=== PATIENT | female | born 1995 | race Caucasian/White ===

== ENCOUNTER 2018-05-25 19:32 | Emergency (ER) | END 2018-05-25 21:28 | disposition home or self-care (01) ==

== ENCOUNTER 2018-05-31 17:55 | Emergency (ER) | END 2018-05-31 22:11 | disposition home or self-care (01) ==

== ENCOUNTER 2018-06-10 22:58 | Emergency (ER) | END 2018-06-11 04:09 | disposition home or self-care (01) ==

== ENCOUNTER 2018-06-21 13:54 | Emergency (ER) | END 2018-06-21 16:50 | disposition home or self-care (01) ==

== ENCOUNTER 2018-07-03 19:24 | Emergency (ER) | END 2018-07-03 21:49 | disposition home or self-care (01) ==

== ENCOUNTER 2018-08-22 20:03 | Outpatient (CLI) | payer OTHER ==
[~2018-08-22] VITALS: Ht 157.5 cm; Wt 80.8 kg
[~2018-08-22 20:03] MED LIST: ACET500C5 PO; CEPH-443 PO; DENIES; FAMO-96 PO; METO10TA92 PO; ONDA4TAB14 PO
[2018-08-22 20:34] VITALS: BP 110/64; PULSE 112; RESP 18
[2018-08-22] MEDS ORDERED: FOLI0.4T2 PO (20:39)
[2018-08-22] MEDS ORDERED: PREN-19 PO (20:39)
[2018-08-22] MEDS ORDERED: FERR134T PO (20:39)
--- NOTE | 2018-08-23 06:08 | TRIAGE ---
OB Triage Datetime Report Generated by CPN: 08/23/2018 06:07 Datetime: 08/22/2018 22:25 Monitor Mode: External US Datetime: 08/22/2018 22:09 Labor Evaluation Monitor Mode: External Quality: Mild Pattern: Normal: <= 5 Contractions in 10 Minutes Datetime: 08/22/2018 21:37 Labor Evaluation Monitor Mode: External Quality: Mild Pattern: Normal: <= 5 Contractions in 10 Minutes Resting Tone [place]: Relaxed Datetime: 08/22/2018 20:34 Stage of : OB Triage Labor Evaluation Monitor Mode: External Quality: Mild Pattern: Normal: <= 5 Contractions in 10 Minutes Resting Tone [place]: Relaxed Heart Rate FHR Baseline Rate: 130 FHR Baseline Changes: No Baseline Change Variability: Moderate 6-25 bpm Accelerations: 15X15 Datetime: 08/22/2018 20:30 Time of Arrival: 08/22/2018 19:55 EGA: 22.0 Arrived By: Wheelchair Arrived From: Home Chief Complaint: c/o back pain and lower abd cramping Movement: Present Contractions: Denies/Absent Rupture of Membranes: Denies Vaginal Bleeding: None Vaginal Discharge: Denies Recent Sexual Intercouse: Denies Abdominal Trauma: Not Applicable Patient Complaints: Cramping Additional Patient Complaints: Pt states she has hx anxiety from childhood trauma from father Time Provider Notified: 08/22/2018 20:35 Provider Notified: Dr Pringle Initial Plan: EFM,CBC,UA, URINE CULLTURE, DRUH SCREEN, CMP,CVL. Datetime: 08/22/2018 20:25 Maternal Assessment Level of Consciousness: Fully Conscious Headache: Denies Blurred Vision: Yes Nausea/Vomiting: Denies Facial Edema: None Labor Evaluation Monitor Mode: External Quality: Mild Pattern: Normal: <= 5 Contractions in 10 Minutes Resting Tone [place]: Relaxed Heart Rate FHR Baseline Rate: 135 Monitor Mode: External US
== END 2018-08-22 22:58 | disposition home or self-care (01) ==
LOC: OBT 20:03 → L-D 20:04 → OBT 22:58
PROVIDERS: ATTEND Obstetrics & Gynecology
DX: O23.12 Infections of bladder in pregnancy, second trimester (principal); N30.00 Acute cystitis without hematuria; Z3A.22 22 weeks gestation of pregnancy
CPT/HCPCS: 76815; 80053; 80307; 81001; 85025; 87086; Z7500; G0463

== ENCOUNTER 2018-08-31 05:21 | Outpatient (CLI) | END 2018-08-31 08:00 | disposition home or self-care (01) ==

== ENCOUNTER 2018-10-04 20:01 | Outpatient (CLI) | payer OTHER ==
[~2018-10-04] VITALS: Ht 157.5 cm; Wt 85.4 kg
[~2018-10-04 20:01] MED LIST changes: -ACET500C5 PO; -CEPH-443 PO; -DENIES; -FAMO-96 PO; +FERR134T PO; +FOLI0.4T2 PO; -METO10TA92 PO; -ONDA4TAB14 PO; +PREN-19 PO
[2018-10-04 20:46] VITALS: BP 117/58; PULSE 100; RESP 16
--- NOTE | 2018-10-04 21:44 | PN ---
Triage Information Date/Time Reason for visit: Weeks of Gestation 28 weeks /Para Objective Vital Signs Date Temp Pulse Resp B/P (MAP) Pulse Ox O2 O2 Flow FiO2 Time Delivery Rate 10/04/18 98.1 100 16 117/58 Room Air 20:46 (77) Heart Rate Comments reactive Exam Tocometer with UCs --> irritability after po hydration Results/Medications Results 24 hrs Laboratory Tests Test 10/04/18 20:10 Urine Color YELLOW Urine Clarity SLIGHTLY CLOUDY A Urine pH 5.0 Urine Specific [place] 1.023 Urine Ketones NEGATIVE Urine Nitrite NEGATIVE Urine Bilirubin NEGATIVE Urine Urobilinogen 1+ H Urine Leukocyte Esterase TRACE A Urine Microscopic RBC 2 Urine Microscopic WBC 8 H Urine Squamous Epithelial Cells FEW Urine Mucus FEW A Urine Hemoglobin 1+ H Urine Glucose NEGATIVE Urine Total Protein NEGATIVE Medications Current Medications Polyethylene Glycol (Miralax) 17 gm ONCE ONCE PO ; Start 10/04/18 at 22:00; Stop 10/04/18 at 22:01; Status UNV Imaging Results BPP 8/8, BRIAN 17, CL 5.1cm Disposition: Discharge Assessment/Plan 23 y/o at 28 weeks s/p fall at 9:15a, no e/o abruption -discharge home, precautions given -f/u with OB TANIA SOMMERS Oct 04, 2018 21:44
[2018-10-04] MEDS ORDERED: DOCU250C17 PO (21:53)
[2018-10-04] MEDS ORDERED: POLYETHYLENE GLYCOL 17 GM PACKET PO ONE (22:00)
== END 2018-10-04 22:17 | disposition home or self-care (01) ==
LOC: OBT 20:01 → L-D 20:02 → OBT 22:17
PROVIDERS: ATTEND Specialist
DX: O9A.213 Injury, poisoning and certain other consequences of external causes complicating pregnancy, third trimester (principal); Z3A.28 28 weeks gestation of pregnancy
CPT/HCPCS: 76817; 76818; 81001; Z7500; Z7610; G0463

== ENCOUNTER 2018-10-25 16:46 | Outpatient (CLI) | payer OTHER ==
[~2018-10-25] VITALS: Ht 157.5 cm; Wt 85.0 kg
[~2018-10-25 16:46] MED LIST changes: +DOCU250C17 PO; -FERR134T PO; -FOLI0.4T2 PO
[2018-10-25 17:02] VITALS: BP 107/59; PULSE 100; RESP 18; Ht 157.5 cm; Wt 85.0 kg
[2018-10-25] MEDS ORDERED: NA PHOSPHATE/BIPHOS 133 ML ENEMA PR ONE (17:30)
--- NOTE | 2018-10-25 22:13 | TRIAGE ---
OB Triage Datetime Report Generated by CPN: 10/25/2018 22:12 Datetime: 10/25/2018 22:00 Stage of : OB Triage Datetime: 10/25/2018 21:00 Contraction Comments: PATIENT REPORTS HAVING DECREASE IN 'CRAMPING' SINCE HAVING LOOSE STOOL Heart Rate FHR Baseline Rate: 150 FHR Baseline Changes: No Baseline Change Variability: Moderate 6-25 bpm Datetime: 10/25/2018 20:00 Labor Evaluation Frequency: 2-4 Monitor Mode: External Pattern: Normal: <= 5 Contractions in 10 Minutes Contraction Comments: PATIENT REPORTS FEELING 'CRAMPING' FOR BM Heart Rate FHR Baseline Rate: 150 FHR Baseline Changes: No Baseline Change Datetime: 10/25/2018 18:01 Labor Evaluation Frequency: 6-10 Monitor Mode: External Duration (sec)2399: 50-70 Pattern: Normal: <= 5 Contractions in 10 Minutes Resting Tone [place]: Relaxed Heart Rate FHR Baseline Rate: 145 Monitor Mode: External US Variability: Moderate 6-25 bpm Accelerations: 10X10 Decelerations: None Category: Category I Pain Assessment Pain Scale: 7 Pain Presence: Intermittent Pain Type: Cramping Pain Location: Abdomen Pain Goal: 3 Pain Relief Measures: Comfort Measures Datetime: 10/25/2018 17:01 Stage of : OB Triage Datetime: 10/25/2018 16:56 Stage of : OB Triage Assessment Type: Triage Maternal Assessment Level of Consciousness: Fully Conscious DTR's/Clonus: DTRs 2+; No Clonus Headache: Denies Blurred Vision: No Respiratory Effort: Unlabored; Regular Rhythm; Equal Expansion Breath Sounds, Left: Clear and Equal Breath Sounds, Right: Clear and Equal Nausea/Vomiting: Denies RUQ Epigastric Pain: Denies Facial Edema: None Temperature Route: Axillary Fall Risk Assessment History of Falling: (0) No Secondary Diagnosis: (0) No Ambulatory Aid: (0) Bedrest/Nurse Assist IV Therapy: (0) No Gait: (0) Normal/Bedrest/Immobile Mental Status: (0) Oriented to Own Ability Fall Score: 0 Fall Risk Score Definition: No Risk: No action required Labor Evaluation Frequency: X1 Monitor Mode: External Duration (sec)2399: 40 Quality: Mild Pattern: Normal: <= 5 Contractions in 10 Minutes Resting Tone [place]: Relaxed Heart Rate FHR Baseline Rate: 155 Monitor Mode: External US Decelerations: None Pain Assessment Pain Scale: 8 Pain Presence: Intermittent Pain Type: Cramping Pain Location: Abdomen Pain Goal: 3 Pain Relief Measures: Comfort Measures Datetime: 10/25/2018 16:54 Time of Arrival: 10/25/2018 16:40 EGA: 31.1 Arrived By: Ambulatory Arrived From: Home Chief Complaint: C/O CONSTIPATION OVER 1.5 WEEKS EVEN AFTER TAKING STOOL SOFTENER. STATES STOOL SOF TENER MAKES HER FEEL UNCOMFORTABLE. DENIES BLEEDING, LEAKING OR UC'S Movement: Present Contractions: Denies/Absent Rupture of Membranes: Denies Vaginal Bleeding: None Vaginal Discharge: Denies Recent Sexual Intercouse: Denies Abdominal Trauma: Not Applicable Patient Complaints: Cramping Initial Plan: MONITOR, ENEMA, CL, BPP Datetime: 10/04/2018 22:01 Stage of : OB Triage Datetime: 10/04/2018 21:36 Stage of : OB Triage Labor Evaluation Frequency: 0 Quality: Mild Pattern: Normal: <= 5 Contractions in 10 Minutes Resting Tone [place]: Relaxed Heart Rate FHR Baseline Rate: 130 Monitor Mode: External US FHR Baseline Changes: No Baseline Change Variability: Moderate 6-25 bpm Accelerations: 15X15 Decelerations: None Category: Category I Pain Assessment Pain Scale: 0 Pain Presence: None/Denies Pain Type: N/A Datetime: 10/04/2018 20:30 Time of Arrival: 10/04/2018 19:55 EGA: 28.1 Arrived By: Ambulatory Arrived From: Home Chief Complaint: c/o fall at 0915. "Tripped ove my own feet and fell to knees". Denies hitting abdomen or any pain Movement: Present Contractions: Denies/Absent Rupture of Membranes: Denies Vaginal Bleeding: None Vaginal Discharge: Denies Recent Sexual Intercouse: Denies Abdominal Trauma: Fall Patient Complaints: None Time Provider Notified: 10/04/2018 20:15 Provider Notified: Dr Solo Initial Plan: EFM,BPP,UA,CVL,PO HYDRATION Datetime: 10/04/2018 20:25 Stage of : OB Triage Labor Evaluation Frequency: 3-6 Monitor Mode: External Duration (sec)2399: 20-30 Quality: Mild Pattern: Normal: <= 5 Contractions in 10 Minutes Resting Tone [place]: Relaxed Contraction Comments: Pt denies cramping or discomfort Heart Rate FHR Baseline Rate: 140 Monitor Mode: External US FHR Baseline Changes: No Baseline Change Variability: Moderate 6-25 bpm Accelerations: 15X15 Decelerations: None Category: Category I Pain Assessment Pain Scale: 0 Pain Presence: None/Denies Pain Type: N/A Datetime: 10/04/2018 20:15 Stage of : OB Triage Datetime: 10/04/2018 20:12 Stage of : OB Triage Maternal Assessment Level of Consciousness: Fully Conscious Headache: Denies Blurred Vision: No Respiratory Effort: Unlabored Nausea/Vomiting: Denies RUQ Epigastric Pain: Denies Facial Edema: None Monitor Mode: External Resting Tone [place]: Relaxed Heart Rate FHR Baseline Rate: 150 Monitor Mode: External US Pain Assessment Pain Scale: 0 Pain Presence: None/Denies Pain Type: N/A Datetime: 08/31/2018 05:47 Fall Score: 0 Fall Risk Score Definition: No Risk: No action required Datetime: 08/31/2018 05:33 EGA: 23.2 Datetime: 08/22/2018 20:30 EGA: 22.0
--- NOTE | 2018-10-26 08:50 | PN ---
Triage Information Date/Time Reason for visit: Constipation for 10 days Weeks of Gestation 31-week and 1 day /Para G1 Diabetes: none Hypertention: none Objective Vital Signs Date Temp Pulse Resp B/P (MAP) Pulse Ox O2 O2 Flow FiO2 Time Delivery Rate 10/25/18 98.2 100 18 107/59 17:02 (75) Heart Rate: 130's Contractions: 6-10 Minutes Apart Disposition: Discharge Assessment/Plan 23 years old 1 with single intrauterine at 31 weeks and 1 day with a MICHOACANO of 12/26/2018 presented to triage with complaint of constipation for 10 days. She states good movement. She denies nausea, vomiting, shortness of breath, chest pain, headache, visual changes, vaginal bleeding or LOF. - FHR: No sign of metabolic acidosis- Category I - She has no uterine contractions - Fleet enema given, patient had bowel movement - Ultrasound performed normal BRIAN - Symptoms and sign of labor, preeclampsia, kick count discussed with patient, she voiced understanding. All of her questions answered. - Patient was discharged home in stable condition with the appropriate discharge instructions provided. I would like patient to have close follow-up with her primary physician or outpatient clinic in 1 week or return to triage for worsening symptoms or any other urgent concerns. CHRISTIANNE PILLAI Oct 26, 2018 08:50
== END 2018-10-25 22:00 | disposition home or self-care (01) ==
LOC: OBT 16:46 → L-D 16:52 → OBT 22:00
PROVIDERS: ATTEND Specialist
DX: O26.893 Other specified pregnancy related conditions, third trimester (principal); Z3A.31 31 weeks gestation of pregnancy; K59.00 Constipation, unspecified
CPT/HCPCS: 76818; Z7500; Z7610; G0463

== ENCOUNTER 2018-11-14 21:21 | Outpatient (CLI) | payer OTHER ==
[~2018-11-14] VITALS: Ht 157.5 cm; Wt 86.0 kg
[2018-11-14 21:37] VITALS: BP 130/64; PULSE 101; RESP 20; Ht 157.5 cm; Wt 86.0 kg
[2018-11-14] MEDS ORDERED: LACTATED RINGER'S 1,000 ML IV ONE (22:00)
[2018-11-14] MEDS ORDERED: TERBUTALINE 1 ML ONE (22:35)
[2018-11-14] MEDS ORDERED: TERBUTALINE 1 MG/ML INJ SC ONE (23:00)
[2018-11-14] MEDS ORDERED: LACTATED RINGER'S 1,000 ML IV SCH (23:00)
[2018-11-15] MEDS ORDERED: SOD CHLORIDE 0.9% 1,000 ML IV PRN (00:30)
[2018-11-15] MEDS ORDERED: TERBUTALINE 1 MG/ML INJ SC ONE (00:30)
[2018-11-15] MEDS ORDERED: CEFTRIAXONE 1 GM INJ IM ONE (00:30)
[2018-11-15] MEDS ORDERED: CEFTRIAXONE 1 GM/50 ML (PMX) 50 ML IVPB ONE (00:30)
--- NOTE | 2018-11-15 02:38 | TRIAGE ---
OB Triage Datetime Report Generated by CPN: 11/15/2018 02:38 Datetime: 11/15/2018 02:20 Stage of : OB Triage Datetime: 11/15/2018 02:00 Stage of : OB Triage Temperature Route: Oral Labor Evaluation Frequency: 1-6 Monitor Mode: External Duration (sec)2399: 50-70 Pattern: Normal: <= 5 Contractions in 10 Minutes Resting Tone [place]: Relaxed Heart Rate FHR Baseline Rate: 150 Monitor Mode: External [place] Variability: Moderate 6-25 bpm Accelerations: 15X15 Decelerations: None Category: Category I Datetime: 11/15/2018 01:00 Stage of : OB Triage Labor Evaluation Frequency: 2-7 Monitor Mode: External Duration (sec)2399: 50-70 Pattern: Normal: <= 5 Contractions in 10 Minutes Resting Tone [place]: Relaxed Heart Rate FHR Baseline Rate: 145 Monitor Mode: External US Variability: Moderate 6-25 bpm Accelerations: 15X15 Decelerations: None Category: Category I Datetime: 11/15/2018 00:15 Stage of : OB Triage Datetime: 11/15/2018 00:00 Stage of : OB Triage Labor Evaluation Frequency: 2-6 Monitor Mode: External Duration (sec)2399: 50-70 Pattern: Normal: <= 5 Contractions in 10 Minutes Resting Tone [place]: Relaxed Heart Rate FHR Baseline Rate: 140 Monitor Mode: External US Variability: Moderate 6-25 bpm Accelerations: 15X15 Decelerations: None Category: Category I Datetime: 11/14/2018 23:18 Monitor Mode: External Monitor Mode: External US Datetime: 11/14/2018 23:00 Stage of : OB Triage Labor Evaluation Frequency: 2-7 Monitor Mode: External Duration (sec)2399: 50-70 Pattern: Normal: <= 5 Contractions in 10 Minutes Resting Tone [place]: Relaxed Heart Rate FHR Baseline Rate: 140 Monitor Mode: External US Variability: Moderate 6-25 bpm Accelerations: 15X15 Decelerations: None Category: Category I Datetime: 11/14/2018 21:57 Stage of : OB Triage Labor Evaluation Frequency: 2-3 Monitor Mode: External Duration (sec)2399: 50-70 Pattern: Normal: <= 5 Contractions in 10 Minutes Resting Tone [place]: Relaxed Heart Rate FHR Baseline Rate: 145 Monitor Mode: External [place] Variability: Moderate 6-25 bpm Accelerations: 15X15 Decelerations: None Category: Category I Datetime: 11/14/2018 21:45 Stage of : OB Triage Assessment Type: Triage Maternal Assessment Level of Consciousness: Fully Conscious DTR's/Clonus: DTRs 2+; No Clonus Headache: Denies Blurred Vision: No Respiratory Effort: Unlabored; Regular Rhythm; Equal Expansion Breath Sounds, Left: Clear and Equal Breath Sounds, Right: Clear and Equal Nausea/Vomiting: Denies RUQ Epigastric Pain: Denies Lower Extremities Edema: None Degree: None Upper Extremities Edema: None Degree: None Facial Edema: None Fall Risk Assessment History of Falling: (0) No Secondary Diagnosis: (0) No Ambulatory Aid: (0) Bedrest/Nurse Assist IV Therapy: (0) No Gait: (0) Normal/Bedrest/Immobile Mental Status: (0) Oriented to Own Ability Fall Score: 0 Fall Risk Score Definition: No Risk: No action required Datetime: 11/14/2018 21:29 Stage of : OB Triage Temperature Route: Oral Monitor Mode: External Monitor Mode: External US Datetime: 11/14/2018 21:15 Time of Arrival: 11/14/2018 21:15 EGA: 34.0 Arrived By: Ambulatory Arrived From: Home Chief Complaint: Stomach ache and diarrhea, N_V Movement: Present (Annotations: Data stored by CPN on behalf of user) Contractions: Regular Time Contractions Began: 11/14/2018 09:00 Contractions: 2-4 Rupture of Membranes: Denies Vaginal Bleeding: None Vaginal Discharge: Denies Recent Sexual Intercouse: Denies (Annotations: Data stored by N on behalf of user) Abdominal Trauma: Not Applicable Patient Complaints: Cramping; Nausea; Vomiting; Epigastric Pain; Other Time Provider Notified: 11/14/2018 22:08 Provider Notified: Dr. Pringle Initial Plan: EFM, BPP, CBC, CMP, PO _ IV Fluids, Terbutaline Datetime: 10/25/2018 16:56 Fall Score: 0 Fall Risk Score Definition: No Risk: No action required Datetime: 10/25/2018 16:54 EGA: 31.1 Datetime: 10/04/2018 20:30 EGA: 28.1 Datetime: 08/31/2018 05:47 Fall Score: 0 Fall Risk Score Definition: No Risk: No action required Datetime: 08/31/2018 05:33 EGA: 23.2 Datetime: 08/22/2018 20:30 EGA: 22.0
--- NOTE | 2018-11-15 07:04 | PN ---
Triage Information Date/Time 11/14/18 Reason for visit: Abd/pelvic pain Weeks of Gestation 34w /Para Diabetes: none Hypertention: none Objective Vital Signs Date Temp Pulse Resp B/P (MAP) Pulse Ox O2 O2 Flow FiO2 Time Delivery Rate 11/14/18 98.3 101 20 130/64 Room Air 21:37 (86) Intake and Output 11/14/18 11/14/18 11/15/18 1515:00 23:00 07:00 IntakeIntake Total 1150 ml BalanceBalance 1150 ml Heart Rate: 130's Contractions: < 5 Minutes Apart Exam CVA neg for tenderness Results/Medications Result Diagram: 11/14/18222411/14/182224 Results 24 hrs Laboratory Tests Test 11/14/18 21:30 11/14/18 22:25 Urine Color ANNA Urine Clarity CLOUDY A Urine pH 5.0 Urine Specific [place] 1.025 Urine Ketones 1+ H Urine Nitrite NEGATIVE Urine Bilirubin NEGATIVE Urine Urobilinogen 2+ H Urine Leukocyte Esterase 2+ H Urine Microscopic RBC 15 H Urine Microscopic WBC 23 H Urine Squamous Epithelial Cells FEW Urine Bacteria FEW A Urine Mucus MODERATE Urine Hemoglobin 1+ H Urine Glucose NEGATIVE Urine Total Protein 1+ H White Blood Count 9.9 Red Blood Count 3.98 L Hemoglobin 10.9 L Hematocrit 32.9 L Mean Corpuscular Volume 82.7 Mean Corpuscular Hemoglobin 27.4 L Mean Corpuscular Hemoglobin Concent 33.1 Red Cell Distribution Width 13.7 Platelet Count 261 Mean Platelet Volume 10.0 Immature Granulocytes % 0.600 H Neutrophils % 69.6 Lymphocytes % 21.9 Monocytes % 7.2 Eosinophils % 0.5 Basophils % 0.2 Nucleated Red Blood Cells % 0.0 Immature Granulocytes # 0.060 H Neutrophils # 6.9 Lymphocytes # 2.2 Monocytes # 0.7 Eosinophils # 0.1 Basophils # 0.0 Nucleated Red Blood Cells # 0.0 Sodium Level 138 Potassium Level 3.9 Chloride Level 107 Carbon Dioxide Level 21 Anion Gap 10 Blood Urea Nitrogen 5 L Creatinine 0.48 Est Glomerular Filtrat Rate mL/min > 60 Glucose Level 99 Calcium Level 9.3 Total Bilirubin 0.2 Direct Bilirubin 0.00 Indirect Bilirubin 0.2 Aspartate Amino Transf (AST/SGOT) 16 Alanine Aminotransferase (ALT/SGPT) 20 Alkaline Phosphatase 156 H Total Protein 6.6 Albumin 3.5 Globulin 3.10 Albumin/Globulin Ratio 1.12 Medications terbbutalinex2 IV hydration rocephin 1gm Imaging Results BPP 04/17 BRIAN 13 Disposition: Discharge Assessment/Plan A IUP 34w UTI PTL resolved P discharge home with Rx cephalexin f/u with her OB BRYAN MONCADA MD Nov 15, 2018 07:04
== END 2018-11-15 02:20 | disposition home or self-care (01) ==
LOC: OBT 21:21 → L-D 21:21 → OBT 11-15 02:20
PROVIDERS: ATTEND Specialist
DX: O26.893 Other specified pregnancy related conditions, third trimester (principal); Z3A.34 34 weeks gestation of pregnancy; R10.2 Pelvic and perineal pain
CPT/HCPCS: 36415; 76818; 80053; 81001; 85025; 87086; 96360; 96372; J0696; J3105; J7120; Z7500; 82947; G0463

== ENCOUNTER 2019-02-16 21:07 | Emergency (ER) | payer OTHER ==
[~2019-02-16] VITALS: Ht 157.5 cm; Wt 75.0 kg
[2019-02-16 21:11] VITALS: Ht 157.5 cm; Wt 75.0 kg
[2019-02-16] MEDS ORDERED: KETOROLAC 30 MG INJ IM STA (21:46)
[2019-02-16] MEDS ORDERED: IBUP-1542 PO (23:52)
[2019-02-16] MEDS ORDERED: ONDA4TAB14 PO (23:54)
[2019-02-16] MEDS ORDERED: FER325 PO (23:55)
[2019-02-16] MEDS ORDERED: DOCU-144 PO (23:55)
--- NOTE | 2019-02-17 00:01 | ERD ---
ER Documentation Chief Complaint Chief Complaint RUQ PAIN X 2 WEEKS & ACTIVE DIARRHEA X 2 TIMES TODAY, HX OF NIKI HPI Patient is a 23-year-old female who presents the ER for concerns of right upper quadrant pain x2 weeks. Patient states pain comes and goes. She states the pain occasionally radiates to her left upper quadrant. Patient denies any fevers or chills. Patient reports 2 episodes of vomiting earlier today. Patient states she is also had brown loose stools, nonbloody. Patient reports 2 episodes today. No recent travel. No recent antibiotic use. Patient denies any dysuria, feelings, urgency or hematuria. Patient is currently on her menstrual period. ROS All systems reviewed and are negative except as per history of present illness. Medications Home Meds Active Scripts Ferrous Sulfate* (Ferrous Sulfate*) 325 Mg Tabec, 325 MG PO BID, #30 TAB Prov:BRETT PEACOCK PA-C 02/16/19 Docusate Sodium* (Colace*) 100 Mg Capsule, 100 MG PO TID, #30 CAP Prov:BRETT PEACOCK PA-C 02/16/19 Ondansetron (Ondansetron Odt) 4 Mg Tab.rapdis, 4 MG PO Q6H PRN for NAUSEA AND/OR VOMITING, #10 TAB Prov:BRETT PEACOCK PA-C 02/16/19 Ibuprofen* (Motrin*) 600 Mg Tab, 600 MG PO Q6, #30 TAB Prov:BRETT PEACOCK PA-C 02/16/19 Reported Medications Docusate Sodium (COL-RITE) 250 Mg Capsule, 250 MG PO DAILY, CAP 10/04/18 Vit #76/Iron,Carb/FA (Prenatabs Rx Tablet) 1 Each Tablet, 1 EACH PO DAILY, TAB 08/22/18 Allergies Allergies: Coded Allergies: No Known Allergy (Unverified , 11/14/18) PMhx/Soc History of Surgery: No Anesthesia Reaction: No Hx Respiratory Disorders: No Hx Cardiac Disorders: No Hx Miscellaneous Medical Probl: No Hx Alcohol Use: No Hx Substance Use: No Hx Tobacco Use: No Smoking Status: Never smoker FmHx Family History: No diabetes Physical Exam Vitals Physical Exam GENERAL: Well-developed, well-nourished female. Appears in no acute distress. HEAD: Normocephalic, atraumatic. EYES: Pupils are equally reactive bilaterally. EOMs grossly intact. No conjunctival erythema. ENT: Moist mucous membranes. No uvula deviation. No kissing tonsils. NECK: Supple. No meningismus. Normal range of motion of the neck. LUNG: Clear to auscultation bilaterally. No rhonchi, wheezing, rales or coarse breath sounds. HEART: Regular rate and rhythm. No murmurs, rubs or gallops. ABDOMEN: Soft nondistended. Tender to palpation in the right upper quadrant. P ositive bowel sounds in all four quadrants. No rebound tenderness, no guarding. (-) McBurney's point tenderness. No CVA tenderness. BACK: No midline tenderness. EXTREMITIES: Equal pulses bilaterally. No peripheral clubbing, cyanosis or edema. No unilateral leg swelling. NEUROLOGIC: Alert and oriented. Moving all four extremities without any difficulty. Normal speech. Steady gait. SKIN: Normal color. Warm and dry. No rashes or lesions. Results 24 hrs Laboratory Tests Test 02/16/19 22:08 02/16/19 22:10 Urine Color YELLOW Urine Clarity SLIGHTLY CLOUDY Urine pH 5.0 Urine Specific [place] 1.025 Urine Ketones TRACE mg/dL Urine Nitrite NEGATIVE mg/dL Urine Bilirubin NEGATIVE mg/dL Urine Urobilinogen 2+ mg/dL Urine Leukocyte Esterase TRACE Carlie/ul Urine Microscopic RBC 95 /HPF Urine Microscopic WBC 8 /HPF Urine Squamous Epithelial Cells FEW /HPF Urine Bacteria FEW /HPF Urine Mucus MODERATE /HPF Urine Hemoglobin 3+ mg/dL Urine Glucose NEGATIVE mg/dL Urine Total Protein NEGATIVE mg/dl White Blood Count 10.0 10^3/ul Red Blood Count 4.43 10^6/ul Hemoglobin 10.3 g/dl Hematocrit 33.8 % Mean Corpuscular Volume 76.3 fl Mean Corpuscular Hemoglobin 23.3 pg Mean Corpuscular Hemoglobin Concent 30.5 g/dl Red Cell Distribution Width 15.4 % Platelet Count 438 10^3/UL Mean Platelet Volume 10.0 fl Immature Granulocytes % 0.200 % Neutrophils % 50.2 % Lymphocytes % 41.3 % Monocytes % 6.1 % Eosinophils % 1.7 % Basophils % 0.5 % Nucleated Red Blood Cells % 0.0 /100WBC Immature Granulocytes # 0.020 10^3/ul Neutrophils # 5.0 10^3/ul Lymphocytes # 4.2 10^3/ul Monocytes # 0.6 10^3/ul Eosinophils # 0.2 10^3/ul Basophils # 0.1 10^3/ul Nucleated Red Blood Cells # 0.0 10^3/ul Sodium Level 142 mmol/L Potassium Level 4.0 mmol/L Chloride Level 110 mmol/L Carbon Dioxide Level 22 mmol/L Anion Gap 10 Blood Urea Nitrogen 10 mg/dl Creatinine 0.71 mg/dl Est Glomerular Filtrat Rate mL/min > 60 mL/min Glucose Level 92 mg/dl Calcium Level 9.3 mg/dl Total Bilirubin 0.3 mg/dl Direct Bilirubin 0.00 mg/dl Indirect Bilirubin 0.3 mg/dl Aspartate Amino Transf (AST/SGOT) 27 IU/L Alanine Aminotransferase (ALT/SGPT) 40 IU/L Alkaline Phosphatase 87 IU/L Total Protein 7.0 g/dl Albumin 4.2 g/dl Globulin 2.80 g/dl Albumin/Globulin Ratio 1.50 Lipase 118 U/L POC Beta HCG, Qualitative NEGATIVE Current Medications Medications Dose Sig/Billie Start Time Status Last (Trade) Ordered Route PRN Stop Time Admin Dose Reason Admin Ketorolac 30 mg ONCE STAT 02/16/19 DC 02/16/19 Tromethamine IM 21:46 02/16/19 22:47 (Toradol) 21:48 Procedures/MDM ED COURSE: The patient was stable throughout ED course. I kept the patient and/or family informed of laboratory and diagnostic imaging results throughout the ED course. DIAGNOSTIC IMAGING: Read by radiologist. DIAGNOSTIC IMAGING REPORT Patient: MONICA THAPA : 1995 Age: 23 Sex: F MR #: [id number] [facility] #: [id number] DOS: 02/16/19 2146 Ordering MD: BRETT PEACOCK PA-C Location: E Room/Bed: PROCEDURE: Abdominal ultrasound, limited. CLINICAL INDICATION: Abdominal pain. TECHNIQUE: Multiple real-time images were acquired of the patient's right upper abdomen utilizing a high resolution transducer. COMPARISON: 06/11/2018. FINDINGS: The liver demonstrates normal echogenicity and size measuring 16.6 cm. There is no focal mass or intrahepatic biliary ductal dilatation. The portal vein is patent. The gallbladder is not distended. Multiple echogenic gallstones are identified. There is no pericholecystic fluid or gallbladder wall thickening. The common bile duct measures 3.6 mm in maximal dimension. The pancreas is obscured by overlying bowel gas. No free fluid is identified. The right kidney is normal size and echogenicity measuring 8.7 cm. There is no focal renal mass or echogenic calculus identified. There is no obstructive uropathy. IMPRESSION: Cholelithiasis without ultrasound evidence of cholecystitis. Pancreas obscured by overlying bowel gas. .Vikash Martinez MD, Date Time Electronically viewed and signed by .Vikash Martinez MD, MD on 02/17/2019 04:15 .T/ CC: BRETT PEACOCK PA-C [phone] PROCEDURES: None. MEDICATIONS GIVEN: Toradol IM Patient tolerated medication well with no adverse reactions. Patient reported improvement in pain. MEDICAL DECISION MAKING: This is a 23-year-old female presents to the ER for concerns of right upper quadrant pain for the last 2 weeks. Patient reports associated vomiting. Patient also has diarrhea. Vital signs were reviewed. Patient is afebrile. Blood work was obtained. CBC showed evidence of anemia. No indication for transfusion at this time. No evidence of systemic infection. CMP showed no evidence of electrolyte abnormalities, severe acidosis, alkalosis, renal failure, or liver disease. Lipase showed no evidence of acute pancreatitis. UA did show positive hemoglobin. Patient is currently on her menstrual.. Urine test was negative. Gallbladder ultrasound showed gallstones. Gallbladder wall within normal limits. Common bile duct within normal limits. At this time, the patient presentation was consistent with gallstones, biliary colic and anemia. Differential diagnosis include but was not limited acute coronary syndrome, AAA, mesenteric ischemia, lower lobe pneumonia, DKA, bowel perforation, cholecystitis, choledocholithiasis, ascending cholangitis, hepatic abscess, pancreatitis, PUD, gastritis, GERD, splenic rupture, diverticulitis, UTI, pyelonephritis, nephrolithiasis, appendicitis, constipation, , ectopic , PID, ovarian torsion or tubo-ovarian abscess. PRESCRIPTIONS: Ibuprofen, Zofran, Colace, iron supplements DISCHARGE: At this time, patient is stable for discharge and outpatient management. I have instructed the patient to follow-up with his/her primary care physician in 1-2 days. I have instructed the patient to promptly return to the ER at any time for any new or worsening symptoms including increased pain, nausea, vomiting, diarrhea, fever, weakness or LOC. The patient and/or family expressed understanding of and agreement with this plan. All questions were answered. Home care instructions were provided. Disclaimer: Inadvertent spelling and grammatical errors are likely due to EHR/dictation software use and do not reflect on the overall quality of patient care. Also, please note that the electronic time recorded on this note does not necessarily reflect the actual time of the patient encounter. Departure Diagnosis: Primary Impression: Gallstones Additional Impressions: Biliary colic Anemia Anemia type: unspecified type Qualified Codes: D64.9 - Anemia, unspecified Condition: Fair Patient Instructions: Biliary Colic With Gallstone (Confirmed) Additional Instructions: Follow up with general surgeon for cholecystectomy on outpatient basis. Call your primary care doctor TOMORROW for an appointment during the next 1-2 days.See the doctor sooner or return here if your condition worsens before your appointment time. BRETT PEACOCK PA-C Feb 17, 2019 00:01
[2019-02-17 00:19] VITALS: BP 127/83; PULSE 76; RESP 20
== END 2019-02-17 00:20 | disposition home or self-care (01) ==
LOC: FTE 21:07
DX: K80.50 Calculus of bile duct without cholangitis or cholecystitis without obstruction (principal); K80.20 Calculus of gallbladder without cholecystitis without obstruction; D64.9 Anemia, unspecified
CPT/HCPCS: 36415; 76705; 80053; 81001; 81025; 83690; 85025; 96372; J1885; Z7502

== ENCOUNTER 2019-03-17 09:58 | Emergency (ER) | payer OTHER ==
[~2019-03-17] VITALS: Ht 157.5 cm; Wt 71.2 kg
[~2019-03-17 09:58] MED LIST changes: +DOCU-144 PO; +FER325 PO; +IBUP-1542 PO; +ONDA4TAB14 PO
[2019-03-17 10:10] VITALS: Ht 157.5 cm; Wt 71.2 kg
[2019-03-17] MEDS ORDERED: MAGNESIUM CITRATE 300 ML BTL PO ONE (13:00)
[2019-03-17] MEDS ORDERED: DOCUSATE SODIUM 100 MG CAP PO ONE (13:00)
[2019-03-17] MEDS ORDERED: DOCU-144 PO (13:02)
--- NOTE | 2019-03-17 13:03 | ERD ---
ER Documentation Chief Complaint Chief Complaint epigastric pain & diarrhea x3 days HPI 23-year-old female presented to ED for abdominal pain and constipation. Patient states the discomfort is 8 out of 10. Patient denies any allergies to medications. Patient states she is not currently taking any medications. Valente ojyce this happened to her in 2012 that she had to be hospitalized for it. Patient's only past medical history is a section. Patient states that she did pass some stool this morning but it was more liquid. Patient denies any blood in her stool or urine. She has not taken any medications for this. ROS All systems reviewed and are negative except as per history of present illness. Medications Home Meds Active Scripts Docusate Sodium* (Colace*) 100 Mg Capsule, 100 MG PO TID, #30 CAP Prov:ALIX JOSEPH PA-C 03/17/19 Ferrous Sulfate* (Ferrous Sulfate*) 325 Mg Tabec, 325 MG PO BID, #30 TAB Prov:BERTT PEACOCK PA-C 02/16/19 Docusate Sodium* (Colace*) 100 Mg Capsule, 100 MG PO TID, #30 CAP Prov:BRETT PEACOCK PA-C 02/16/19 Ondansetron (Ondansetron Odt) 4 Mg Tab.rapdis, 4 MG PO Q6H PRN for NAUSEA AND/OR VOMITING, #10 TAB Prov:BRETT PEACOCK PA-C 02/16/19 Ibuprofen* (Motrin*) 600 Mg Tab, 600 MG PO Q6, #30 TAB Prov:BRETT PEACOCK PA-C 02/16/19 Reported Medications Docusate Sodium (COL-RITE) 250 Mg Capsule, 250 MG PO DAILY, CAP 10/04/18 Vit #76/Iron,Carb/FA (Prenatabs Rx Tablet) 1 Each Tablet, 1 EACH PO DAILY, TAB 08/22/18 Allergies Allergies: Coded Allergies: No Known Allergy (Unverified , 03/17/19) PMhx/Soc History of Surgery: No Anesthesia Reaction: No Hx Respiratory Disorders: No Hx Cardiac Disorders: No Hx Miscellaneous Medical Probl: Yes (chronic constipation) Hx Alcohol Use: No Hx Substance Use: No Hx Tobacco Use: No Smoking Status: Never smoker FmHx Family History: No diabetes, No coronary disease, No other Physical Exam Vitals Vital Signs Date Temp Pulse Resp B/P (MAP) Pulse Ox O2 O2 Flow FiO2 Time Delivery Rate 03/17/19 97.2 82 18 125/62 98 Room Air 13:36 (83) 03/17/19 97.2 88 18 119/53 98 10:10 (75) Physical Exam Const: No acute distress Resp: Clear to auscultation bilaterally Cardio: Regular rate and rhythm, no murmurs Abd: Distended left upper quadrant, no pain on palpation, no right lower quadrant tenderness, no right upper quadrant tenderness. Skin: No petechiae or rashes Back: No midline or flank tenderness Ext: No cyanosis, or edema Results 24 hrs Laboratory Tests Test 03/17/19 11:08 POC Beta HCG, Qualitative NEGATIVE Current Medications Medications Dose Sig/Billie Start Time Status Last (Trade) Ordered Route PRN Stop Time Admin Dose Reason Admin Magnesium 300 ml ONCE ONCE 03/17/19 DC 03/17/19 Citrate PO 13:00 03/17/19 13:33 (Citroma) 13:01 Docusate 100 mg ONCE ONCE 03/17/19 DC 03/17/19 Sodium PO 13:00 03/17/19 13:33 (Colace) 13:01 Procedures/MDM Diagnostic imaging: Read by radiologist HOLLAND: CT ABDOMEN AND PELVIS WITHOUT CONTRAST. CLINICAL INDICATION: Abdominal pain TECHNIQUE: CT scan of the abdomen and pelvis without contrast was performed on a multidetector high-resolution CT scanner. The patient was scanned without intravenous contrast. Coronal and sagittal reformatted images were obtained from the axial source images. Images were reviewed on a high-resolution PACS workstation. The total exam CTDI equals 13.6 mGy and the total exam DLP equals 809.4 mGy-cm. One or more of the following dose reduction techniques were used: Automated exposure control. Adjustment of the mA and/or kV according to patient size. Use of iterative reconstruction technique. DICOM images are available COMPARISON: None FINDINGS: CT abdomen: The lung bases are clear. The heart size is within normal limits. There is no significant pericardial effusion. Hepatic morphology is within normal limits. No gross contour deforming masses. The gallbladder is within normal limits. No evidence of intrahepatic or extrahepatic biliary dilatation. The spleen and pancreas are within normal limits. Both adrenal glands are within normal limits. Both kidneys are in normal anatomic position. Several punctate nonobstructing stones are noted within right kidney. The largest measures up to 2.1 mm. No evidence of ureteric calculi. Punctate 2.5 mm non-obstructing stones noted within left kidney. No ureteric calculi bilaterally. No obstructive uropathy. The visualized GI tract demonstrates large amount of stool within a distended rectosigmoid colon. Moderate amount of stool noted throughout remaining large bowel loops. No gross evidence of bowel obstruction. Normal caliber loops of small bowel. Stomach is collapsed. The unenhanced aorta is unremarkable. No significant retroperitoneal lymphadenopathy. CT pelvis: The bladder is collapsed. No significant free fluid. No pelvic lymphadenopathy. There is mass effect with anterior displacement of the bladder and uterus, secondary to a markedly distended rectosigmoid colon. The visualized osseous structures, appears to be within normal limits. IMPRESSION: 1. MARKEDLY DISTENDED RECTOSIGMOID COLON, CONTAINING A LARGE AMOUNT OF STOOL, CONSISTENT WITH FECAL IMPACTION. RECOMMEND DISIMPACTION. THERE IS MASS EFFECT WITH ANTERIOR DISPLACEMENT OF THE BLADDER AND UTERUS. 2. MODERATE AMOUNT OF STOOL AND LARGE AMOUNT OF STOOL WITHIN THE RECTOSIGMOID COLON, CONSISTENT WITH CONSTIPATION. NO GROSS EVIDENCE OF BOWEL OBSTRUCTION. 3. Bilateral nonobstructing nephrolithiasis. No evidence of obstructive uropathy. 4. No evidence of free fluid or free air. No gross focal fluid collections. RPTAT: AAPP Physician Giana Medications given in ER: Magnesium citrate Colace Patient tolerated medication well with no adverse reactions. Patient reported improvement in pain. Medical decision making: Patient is a 23-year-old female presented to ED for abdominal pain and constipation x3 days. Patient states she has been able to pass a little bit of stool but is been more like diarrhea. Patient states that there was no presence of blood in the stool. Patient denies any difficulty urinating or any pain on urination. Patient is presenting afebrile physical exam noted abdominal distention with no pain to palpation. Patient's right lower quadrant was unremarkable, right upper quadrant was unremarkable. Patient has decreased bowel sounds on auscultation. Patient's urine was negative. Patient's CT scan showed fecal impaction with no obstruction. Patient was given magnesium citrate and Colace in the ED. The patient's vitals remained stable within the ED she is afebrile she is only in mild pain. At this time I have low suspicion for bowel obstruction, sepsis, diverticulitis, appendicitis, ectopic , , sepsis, dehydration, hernia, toxic megacolon syndrome. Patient was advised that she can wait around until she passes stool. She prefers to go home I advised the patient if symptoms worsen she needs to return to ER immediately otherwise she should follow-up with her primary care provider within 1 to 2 days. Patient was given a prescription for Colace and advised to increase fiber intake and use [id number] Metamucil. Patient had no further questions and is in agreement to the treatment plan. Prescription for home: Colace I have discussed with the patient proper use and common side effects to expert with the medication . I advised the patient/family to speak with the pharmaci st dispensing the medication to be advised of any potential drug interactions with other medication or supplements they may be taking. Discharge: At this time, patient is stable for discharge and outpatient management. I have instructed the patient to follow-up with his\her primary care physician in 1 to 2 days. I have discussed with the patient the possibility of needing to see a specialist for further work-up and imaging studies if symptoms persist. I have instructed the patient to promptly return to the ER for any new or worsening symptoms including increased pain, fever, nausea, vomiting, weakness or LOC. The patient and\or family expressed understanding of and agreement with this plan. All questions were answered. Home care instructions were provided. Disclaimer: Inadvertent spelling and grammatical errors are likely due to EHR\dictation software use and do not reflect on the overall quality of patient care. Also, please note that the electronic time recorded on the note does not necessarily reflect the actual time of the patient encounter. Departure Diagnosis: Primary Impression: Constipation Constipation type: unspecified constipation type Qualified Codes: K59.00 - Constipation, unspecified Additional Impression: Fecal impaction Condition: Stable Patient Instructions: Constipation (Adult) Additional Instructions: Call your primary care doctor TOMORROW for an appointment during the next 1-2 days.See the doctor sooner or return here if your condition worsens before your appointment time. ALIX JOSEPH PA-C Mar 17, 2019 13:03
[2019-03-17 13:36] VITALS: BP 125/62; PULSE 82; RESP 18
== END 2019-03-17 13:39 | disposition home or self-care (01) ==
LOC: FTE 09:58
DX: K56.41 Fecal impaction (principal)
CPT/HCPCS: 74176; 81025; Z7502; Z7610

== ENCOUNTER 2019-03-19 20:20 | Emergency (ER) | payer OTHER ==
[~2019-03-19] VITALS: Ht 154.9 cm; Wt 70.9 kg
[2019-03-19 20:41] VITALS: Ht 154.9 cm; Wt 70.9 kg
[2019-03-19] MEDS ORDERED: MAGNESIUM CITRATE 300 ML BTL PO ONE (22:00)
--- NOTE | 2019-03-19 22:06 | ERD ---
ER Documentation Chief Complaint Chief Complaint L flank pain, worse today HPI 23-year-old female G1, P1 with past medical history of chronic constipation since childhood who presents with complaint of left flank pain and diarrhea. Patient states she was here this past Sunday in ED for similar complaints. CT demonstrating copious stool in colon. Patient given mag citrate and discharged with Colace medication. Since that time been having small amount of diarrhea daily but with worsening abdominal distention and left flank discomfort. States she tried [id number] colon cleanse which did not help with symptoms. She otherwise denies persistent nausea, vomiting, urinary symptoms, vaginal bleeding or discharge. ROS All systems reviewed and are negative except as per history of present illness. Medications Home Meds Active Scripts Lactulose* (Lactulose*) 20 Gm/30 Ml Solution, 20 GM PO BID for 2 Days, ML Prov:TONY TERRY PA-C 03/20/19 Mineral Oil* (Fleet* Mineral Oil Enema) 133 Ml Oil, 133 ML NM NEEDED PRN for CONSTIPATION for 7 Days, ENEMA Prov:TONY TERRY PA-C 03/20/19 Polyethylene Glycol* (Miralax*) 17 Gm Powd.pack, 17 GM PO DAILY, #7 Prov:TONY TERRY PA-C 03/20/19 Docusate Sodium* (Colace*) 100 Mg Capsule, 100 MG PO TID, #30 CAP Prov:ALIX JOSEPH PA-C 03/17/19 Ferrous Sulfate* (Ferrous Sulfate*) 325 Mg Tabec, 325 MG PO BID, #30 TAB Prov:BRETT PEACOCK PA-C 02/16/19 Docusate Sodium* (Colace*) 100 Mg Capsule, 100 MG PO TID, #30 CAP Prov:BRETT PEACOCK PA-C 02/16/19 Ondansetron (Ondansetron Odt) 4 Mg Tab.rapdis, 4 MG PO Q6H PRN for NAUSEA AND/OR VOMITING, #10 TAB Prov:BRETT PEACOCK PA-C 02/16/19 Ibuprofen* (Motrin*) 600 Mg Tab, 600 MG PO Q6, #30 TAB Prov:BRETT PEACOCK PA-C 02/16/19 Reported Medications Docusate Sodium (COL-RITE) 250 Mg Capsule, 250 MG PO DAILY, CAP 10/04/18 Vit #76/Iron,Carb/FA (Prenatabs Rx Tablet) 1 Each Tablet, 1 EACH PO DAILY, TAB 08/22/18 Allergies Allergies: Coded Allergies: No Known Allergy (Unverified , 03/17/19) PMhx/Soc History of Surgery: Yes (CS x1) Anesthesia Reaction: No Hx Neurological Disorder: No Hx Respiratory Disorders: No Hx Cardiac Disorders: No Hx Psychiatric Problems: No Hx Miscellaneous Medical Probl: No Hx Alcohol Use: Yes (occasionally.) Hx Substance Use: No Hx Tobacco Use: No Smoking Status: Never smoker FmHx Family History: No diabetes, No coronary disease, No other Physical Exam Vitals Vital Signs Date Temp Pulse Resp B/P (MAP) Pulse Ox O2 O2 Flow FiO2 Time Delivery Rate 03/20/19 98.4 91 18 112/66 99 Room Air 03:51 (81) 03/19/19 98.8 89 18 125/69 97 20:41 (87) Physical Exam Const: No acute distress Head: Atraumatic Eyes: Normal Conjunctiva ENT: Normal External Ears, Nose and Mouth. Neck: Full range of motion. No meningismus. Resp: Clear to auscultation bilaterally Cardio: Regular rate and rhythm, no murmurs Abd: Distended, tenderness to palpation to right upper quadrant, no rebound or guarding, no bowel sounds auscultated Skin: No petechiae or rashes Back: No midline or flank tenderness Ext: No cyanosis, or edema Neur: Awake and alert Psych: Normal Mood and Affect Results 24 hrs Laboratory Tests Test 03/20/19 00:16 POC Beta HCG, Qualitative NEGATIVE Current Medications Medications Dose Sig/Billie Start Time Status Last (Trade) Ordered Route PRN Stop Time Admin Dose Reason Admin Magnesium 300 ml ONCE ONCE 03/19/19 DC 03/19/19 Citrate PO 22:00 22:08 (Citroma) 03/19/19 22:01 Sodium 133 ml ONCE ONCE 03/20/19 DC 03/20/19 Biphosphate/ NM 02:00 01:51 Sodium 03/20/19 02:01 Phosphate (Fleet Enema) Procedures/MDM 23-year-old female with history of chronic constipation with recent CT for copio us stool in colon who presents with complaint of left flank pain diarrhea. Given diarrhea with symptoms and signs consistent with constipation the concern is for partial bowel obstruction. ED course: Patient given mag citrate, subsequently with a small amount of stool output, and serial examination belly a bit softer than on presentation less distended, but x-ray as noted with copious amount of stool in rectosigmoid and she would likely need to have much larger bowel output to relieve symptoms and noted c onstipation, obstipation Fleet enema given in ED with good effect Discharged with lactulose, MiraLAX, strict return precautions to return to emergency room in 24 hours if no bowel movements Case discussed with attending of record Dr. Powell DISPOSITION PLAN: We discussed follow up with the patient's primary care doctor within 24 to 48 hours. Patient counseled regarding my diagnostic impression and care plan. Prior to discharge all questions answered. Pt agrees with treatment plan and understands strict return precautions. Precautionary instructions provided including instructions to return to the ER if not improving or for any worsening or changing symptoms or concerns. Disclaimer: Inadvertent spelling and grammatical errors are likely due to EHR/dictation software use and do not reflect on the overall quality of patient care. Also, please note that the electronic time recorded on this note does not necessarily reflect the actual time of the patient encounter. Departure Diagnosis: Primary Impression: Abdominal pain Condition: Stable TONY TERRY PA-C Mar 19, 2019 22:06
[2019-03-20] MEDS ORDERED: POLY17PO6 PO (00:22)
[2019-03-20] MEDS ORDERED: PEG1POWD PO (00:22)
[2019-03-20] MEDS ORDERED: MINE133E23 PR (00:23)
[2019-03-20] MEDS ORDERED: LACT20SO2 PO (01:51)
[2019-03-20] MEDS ORDERED: NA PHOSPHATE/BIPHOS 133 ML ENEMA PR ONE (02:00)
[2019-03-20 03:51] VITALS: BP 112/66; PULSE 91; RESP 18
== END 2019-03-20 03:51 | disposition home or self-care (01) ==
LOC: FTE 20:20
DX: R10.11 Right upper quadrant pain (principal)
CPT/HCPCS: 74018; 81025; Z7610